=== PATIENT | male | born 1955 | race Caucasian/White ===

== ENCOUNTER 2024-06-06 05:41 | Observation (INO) | payer MEDICARE ==
[2024-06-06] MEDS ORDERED: Ondansetron PF 4 MG/2 ML Vial IVP PRN (06:07)
[2024-06-06] MEDS ORDERED: Calcium Carbonate 500 MG ChewTAB PO PRN (06:07)
[2024-06-06] MEDS ORDERED: Guaifenesin DM 100-10/5 ML UDCUP PO PRN (06:07)
[2024-06-06] MEDS ORDERED: Acetaminophen 325 MG TAB PO PRN (06:07)
[2024-06-06] MEDS ORDERED: Senokot S 8.6-50 MG TAB PO PRN (06:07)
[2024-06-06] MEDS ORDERED: traZODone HCl 50 MG TAB PO PRN (06:13)
[2024-06-06 06:49] VITALS: BMI 26.1
[2024-06-06 07:29] LABS: #Basophils 0.02 10x3/uL (0.0-0.2); #Eosinophils 0.06 10x3/uL (0.0-0.5); #Monocytes 0.31 10x3/uL (0.0-1.1); #Neutrophils 2.25 10x3/uL (1.5-8.4); %Basophils 0.5 % (0.0-2.0); %Eosinophils 1.4 % (0.0-6.0); %Lymphocytes 36.4 % (18.0-47.0); %Monocytes 7.5 % (0.0-10.0); %Neutrophils 54.2 % (40.0-75.0); Cardiac Risk 1.8 (Less than 4.5); Hematocrit 43.2 % (38.8-50.0); Hemoglobin 14.8 g/dL (13.5-17.5); Mean Corpuscular HGB CONC 34.3 g/dL (32.0-36.0); Mean Corpuscular Hemoglobin 30.3 pg (27.0-33.0); Mean Corpuscular Volume 88.5 fL (81.2-95.1); RBC Distribution Width 13.6 % (11.5-14.5); Red Blood Cell (RBC) Count 4.88 10x6/uL (4.32-5.72); Troponin I Less than 0.010 ng/mL (< 0.028); White Blood Cell (WBC) Count 4.2 10x3/uL (3.5-10.5)
[2024-06-06 07:34] LABS: Thyroid Stimulating Hormone 1.4981 uIU/mL (0.35-4.94)
[2024-06-06 07:54] LABS: Mean Platelet Volume 8.5 fL (7.4-10.4); Platelet Count 92 10x3/uL (150-450)
[2024-06-06 07:55] LABS: Platelet Adequacy Comment Appears Decreased; RBC Morph Comment Within Normal Limits
[2024-06-06] MEDS: Multivit, Therapeutic 1 TAB PO SCH (08:59)
[2024-06-06] MEDS: Cyanocobalamin (Vitamin B-12) 1,000 MCG TAB PO SCH (08:59)
[2024-06-06] MEDS: Pantoprazole DR 40 MG TAB PO SCH (08:59)
[2024-06-06 17:27] LABS: Hemoglobin A1c 4.7 % (4.0-6.0)
[2024-06-06 18:00] LABS: Vitamin B12 Greater than 2000 pg/mL (211-911)
[2024-06-06] MEDS: Aspirin Chewable 81 MG TAB PO SCH (21:14)
[2024-06-06] MEDS: Fish Oil 1,000 MG CAP PO SCH (21:14)
[2024-06-06] MEDS: lamoTRIgine 100 MG TAB PO SCH (21:14)
[2024-06-06] MEDS: Rosuvastatin 20 MG TAB PO SCH (21:14)
[2024-06-06] MEDS: Ezetimibe 10 MG TAB PO SCH (21:14)
[2024-06-07 03:54] LABS: Anion Gap 13 mmol/L (10-20); BUN (Urea Nitrogen) 13 mg/dL (8.4-25.7); Calc. Creatinine Clearance 76 mL/min (70-130); Calcium 8.7 mg/dL (7.8-10.44); Carbon Dioxide 27 mmol/L (23-31); Chloride 105 mmol/L (98-107); Estimated GFR 69; Glucose 107 mg/dL (83-110); Potassium 4.1 mmol/L (3.5-5.1); Sodium 141 mmol/L (136-145)
[2024-06-07 08:03] VITALS: TEMP 98.2
[2024-06-07] MEDS: Sildenafil Citrate 20 MG TAB PO SCH (09:08)
[2024-06-07] MEDS: BuPROPion XL 150 MG ER.TAB PO SCH (09:08)
[2024-06-07 11:29] VITALS: BP 153/82
== END 2024-06-07 12:05 | disposition home or self-care (01) ==
LOC: CSHTELE 05:41
PROVIDERS: ADMIT Student in an Organized Health Care Education/Training Program; ATTEND Internal Medicine
PROC: B24BZZZ Ultrasonography of Heart with Aorta (ICD-10-PCS; principal; 2024-06-06)
DX: R29.898 Other symptoms and signs involving the musculoskeletal system (principal); R42 Dizziness and giddiness; R53.1 Weakness; I11.9 Hypertensive heart disease without heart failure; I49.5 Sick sinus syndrome; I25.10 Atherosclerotic heart disease of native coronary artery without angina pectoris; I48.0 Paroxysmal atrial fibrillation; I48.3 Typical atrial flutter; D69.6 Thrombocytopenia, unspecified; E78.5 Hyperlipidemia, unspecified; F32.A Depression, unspecified; F41.9 Anxiety disorder, unspecified; K21.9 Gastro-esophageal reflux disease without esophagitis; G89.29 Other chronic pain; M54.50 Low back pain, unspecified; N40.0 Benign prostatic hyperplasia without lower urinary tract symptoms; Z95.1 Presence of aortocoronary bypass graft; Z98.890 Other specified postprocedural states; Z88.0 Allergy status to penicillin; Z79.82 Long term (current) use of aspirin; Z79.899 Other long term (current) drug therapy
CPT/HCPCS: 70551; 72156; 80048; 80061; 82533; 82607; 82962 ×2; 83036; 84443; 84484; 85025; 93306; 97116; G0378 ×2; 36415; 36416